=== PATIENT | female | born 1935 | race Caucasian/White ===

== ENCOUNTER 2020-05-03 08:01 | Emergency (ER) | payer OTHER ==
[2020-05-03 08:57] LABS: BILIRUBIN Negative (Negative); BLOOD Negative (Negative); CLARITY Clear (Clear); COLOR Yellow (Yellow); GLUCOSE Negative (Negative); KETONE Negative (Negative); LEUKO ESTERASE Trace (Negative); NITRITE Negative (Negative); UROBILINOGEN 0.2 E.U./dl (0.0-1.0)
[2020-05-03 09:08] LABS: BACTERIA 2+
[2020-05-03 09:15] LABS: CREATININE 1.14 mg/dL (0.55-1.02); POTASSIUM 4.9 mmol/L (3.5-5.1)
[2020-05-03 09:24] LABS: BASO % 0.2 % (0.0-1.0); EOS # 0.1 10*3/uL (0.0-0.4); EOS % 2.5 % (1.0-4.0); HEMATOCRIT 31.3 % (37.0-47.0); LYMPH # 0.7 10*3/uL (1.3-4.4); LYMPH % 13.4 % (27.0-41.0); MEAN CELL VOLUME 88.9 fl (81.0-99.0); MEAN CORPUSCULAR HGB 26.4 pg (27.0-31.0); MEAN CORPUSCULAR HGB CONC 29.7 g/dl (33.0-37.0); MEAN PLATELET VOLUME 9.2 fl (9.6-12.3); MONO # 0.5 10*3/uL (0.1-1.0); NEUT # 3.9 10*3/uL (2.3-7.9); NEUT % 73.7 % (47.0-73.0); PLATELET COUNT AUTOMATED 184 10*3/uL (130-400); RED BLOOD COUNT 3.52 10*6/uL (4.10-5.10); RED CELL DISTRI WIDTH 14.3 % (0-14.5); WHITE BLOOD COUNT 5.3 10*3/uL (4.8-10.8)
== END 2020-05-03 10:10 | disposition home or self-care (01) ==
LOC: ED 08:01
PROVIDERS: Internal Medicine
DX: Z00.01 Encounter for general adult medical examination with abnormal findings (principal); E03.9 Hypothyroidism, unspecified; I10 Essential (primary) hypertension; I48.91 Unspecified atrial fibrillation

== ENCOUNTER 2020-07-25 23:32 | Emergency (ER) | payer OTHER | END 2020-07-26 01:45 | LOC: ED 23:32 | DX: S00.93XA Contusion of unspecified part of head, initial encounter (principal); E03.9 Hypothyroidism, unspecified; I10 Essential (primary) hypertension; I48.91 Unspecified atrial fibrillation; W01.0XXA Fall on same level from slipping, tripping and stumbling without subsequent striking against object, initial encounter; Y93.89 Activity, other specified; Y92.89 Other specified places as the place of occurrence of the external cause; Y99.8 Other external cause status ==

== ENCOUNTER 2020-07-30 21:07 | Observation (INO) | payer OTHER ==
[~2020-07-30] VITALS: Ht 152.4 cm; Wt 69.0 kg
[2020-07-30 21:15] VITALS: BP 127/66
[2020-07-30 22:06] LABS: BASO % 0.4 % (0.0-1.0); EOS # 0.1 10*3/uL (0.0-0.4); EOS % 1.8 % (1.0-4.0); HEMATOCRIT 33.6 % (37.0-47.0); LYMPH # 0.9 10*3/uL (1.3-4.4); LYMPH % 15.2 % (27.0-41.0); MEAN CELL VOLUME 88.9 fl (81.0-99.0); MEAN CORPUSCULAR HGB 26.7 pg (27.0-31.0); MEAN CORPUSCULAR HGB CONC 30.1 g/dl (33.0-37.0); MEAN PLATELET VOLUME 9.6 fl (9.6-12.3); MONO # 0.5 10*3/uL (0.1-1.0); MONO % 8.4 % (3.0-9.0); NEUT # 4.1 10*3/uL (2.3-7.9); NEUT % 73.5 % (47.0-73.0); PLATELET COUNT AUTOMATED 246 10*3/uL (130-400); RED BLOOD COUNT 3.78 10*6/uL (4.10-5.10); RED CELL DISTRI WIDTH 15.5 % (0-14.5); WHITE BLOOD COUNT 5.6 10*3/uL (4.8-10.8)
[2020-07-30 22:20] LABS: CREATININE 1.7 mg/dL (0.55-1.02); POTASSIUM 5.9 mmol/L (3.5-5.1); TOTAL PROTEIN 7.4 gm/dL (6.4-8.2)
[2020-07-30 22:34] VITALS: BP 133/58
[2020-07-30 22:51] LABS: INTERNATIONAL NORM RATIO > 9.3 (2.0-3.5)
[2020-07-31 00:13] LABS: INTERNATIONAL NORM RATIO > 9.3 (2.0-3.5)
[2020-07-31] MEDS ORDERED: LEVOTHYROXINE75 MCG PO (00:16)
[2020-07-31] MEDS ORDERED: Imdur SA60 MG PO (00:17)
[2020-07-31] MEDS ORDERED: ATENOLOL25 MG PO (00:18)
[2020-07-31] MEDS ORDERED: ZESTORETIC 20-1 EACH PO (00:18)
[2020-07-31] MEDS ORDERED: MECLIZINE HYD12.5 MG PO (00:19)
[2020-07-31] MEDS ORDERED: WARFARIN SODIUM4 MG PO (00:20)
[2020-07-31] MEDS ORDERED: VITAMIN D250 MCG PO (00:21)
[2020-07-31] MEDS ORDERED: VITAMIN B-625 M1 PO (00:21)
[2020-07-31] MEDS ORDERED: SOOTHE XP EYE D15 ML OPH (00:22)
[2020-07-31] MEDS ORDERED: LATANOPROST2.5 ML OP (00:23)
[2020-07-31] MEDS ORDERED: SERTRALINE HYDR50 MG PO (00:23)
[2020-07-31] MEDS ORDERED: PRESERVISION A1 EAC2 PO (00:23)
[2020-07-31] MEDS ORDERED: IRON325 M1 PO (00:24)
[2020-07-31] MEDS ORDERED: QUETIAPINE FUMA50 M1 PO (00:25)
[2020-07-31 01:04] VITALS: BP 116/72
[2020-07-31 05:07] LABS: BASO % 0.2 % (0.0-1.0); EOS # 0.1 10*3/uL (0.0-0.4); EOS % 2.3 % (1.0-4.0); LYMPH # 0.7 10*3/uL (1.3-4.4); LYMPH % 13.8 % (27.0-41.0); MEAN CELL VOLUME 88.2 fl (81.0-99.0); MEAN CORPUSCULAR HGB 26.7 pg (27.0-31.0); MEAN CORPUSCULAR HGB CONC 30.3 g/dl (33.0-37.0); MEAN PLATELET VOLUME 9.6 fl (9.6-12.3); MONO # 0.5 10*3/uL (0.1-1.0); MONO % 9.2 % (3.0-9.0); NEUT # 3.9 10*3/uL (2.3-7.9); NEUT % 73.7 % (47.0-73.0); PLATELET COUNT AUTOMATED 259 10*3/uL (130-400); RED BLOOD COUNT 3.74 10*6/uL (4.10-5.10); RED CELL DISTRI WIDTH 15.5 % (0-14.5); WHITE BLOOD COUNT 5.2 10*3/uL (4.8-10.8)
[2020-07-31 05:10] LABS: ALBUMIN 2.9 gm/dl (3.1-4.5); CREATININE 1.65 mg/dL (0.55-1.02); POTASSIUM 5.7 mmol/L (3.5-5.1)
[2020-07-31 05:18] LABS: FREE T4 0.85 ng/dl (0.76-1.46); THYROID STIM HORMONE (HS) 2.55 uIU/ml (0.358-4.75)
[2020-07-31 06:07] LABS: ACT PARTIAL THROMBO TIME 65.8 SECONDS (20.0-32.1); INTERNATIONAL NORM RATIO 9.1 (2.0-3.5)
[2020-07-31 08:00] VITALS: BP 126/64
[2020-07-31 11:02] LABS: CREATININE 1.58 mg/dL (0.55-1.02)
[2020-07-31] MEDS ORDERED: ARTIFICIAL TEAR1514 OP (11:35)
[2020-07-31] MEDS ORDERED: VITAMIN D350 MC2 PO (11:38)
[2020-07-31 12:00] VITALS: BP 118/69
[2020-07-31 16:00] VITALS: BP 134/86
[2020-07-31 20:00] VITALS: BP 125/62
[2020-08-01] VITALS: BP 126/46
[2020-08-01 06:22] LABS: BASO % 0.2 % (0.0-1.0); EOS # 0.1 10*3/uL (0.0-0.4); EOS % 1.7 % (1.0-4.0); LYMPH # 0.8 10*3/uL (1.3-4.4); LYMPH % 12.6 % (27.0-41.0); MEAN CELL VOLUME 89.7 fl (81.0-99.0); MEAN CORPUSCULAR HGB 26.9 pg (27.0-31.0); MEAN PLATELET VOLUME 9.5 fl (9.6-12.3); MONO # 0.5 10*3/uL (0.1-1.0); MONO % 8.7 % (3.0-9.0); NEUT # 4.6 10*3/uL (2.3-7.9); NEUT % 76.5 % (47.0-73.0); PLATELET COUNT AUTOMATED 253 10*3/uL (130-400); RED BLOOD COUNT 3.68 10*6/uL (4.10-5.10); RED CELL DISTRI WIDTH 15.4 % (0-14.5)
[2020-08-01 06:33] LABS: CREATININE 1.3 mg/dL (0.55-1.02); POTASSIUM 5.3 mmol/L (3.5-5.1)
[2020-08-01 06:59] LABS: INTERNATIONAL NORM RATIO 1.9 (2.0-3.5)
[2020-08-01 08:00] VITALS: BP 144/69
[2020-08-01 12:00] VITALS: BP 136/66
[2020-08-01 16:00] VITALS: BP 154/65
[2020-08-01 20:00] VITALS: BP 119/73
[2020-08-01 20:41] LABS: BILIRUBIN Negative (Negative); BLOOD Negative (Negative); CLARITY Clear (Clear); COLOR Yellow (Yellow); GLUCOSE Negative (Negative); KETONE Negative (Negative); LEUKO ESTERASE Negative (Negative); NITRITE Negative (Negative); PH 5.5 (4.5-8.0); SPECIFIC GRAVITY 1.015 (1.001-1.030)
[2020-08-01 20:53] LABS: BACTERIA 2+; RBC 0-2 rbc/hpf (0-2)
[2020-08-02] VITALS: BP 116/50
[2020-08-02 06:24] LABS: BASO % 0.2 % (0.0-1.0); EOS # 0.1 10*3/uL (0.0-0.4); EOS % 1.5 % (1.0-4.0); HEMATOCRIT 35.9 % (37.0-47.0); LYMPH # 0.9 10*3/uL (1.3-4.4); LYMPH % 15.2 % (27.0-41.0); MEAN CELL VOLUME 88.4 fl (81.0-99.0); MEAN CORPUSCULAR HGB 26.1 pg (27.0-31.0); MEAN CORPUSCULAR HGB CONC 29.5 g/dl (33.0-37.0); MEAN PLATELET VOLUME 9.3 fl (9.6-12.3); MONO # 0.6 10*3/uL (0.1-1.0); MONO % 9.4 % (3.0-9.0); NEUT # 4.4 10*3/uL (2.3-7.9); NEUT % 73.5 % (47.0-73.0); PLATELET COUNT AUTOMATED 265 10*3/uL (130-400); RED BLOOD COUNT 4.06 10*6/uL (4.10-5.10); RED CELL DISTRI WIDTH 15.2 % (0-14.5); WHITE BLOOD COUNT 5.9 10*3/uL (4.8-10.8)
[2020-08-02 06:32] LABS: INTERNATIONAL NORM RATIO 1.4 (2.0-3.5)
[2020-08-02 06:52] LABS: CREATININE 1.22 mg/dL (0.55-1.02); POTASSIUM 5.2 mmol/L (3.5-5.1)
[2020-08-02 08:00] VITALS: BP 118/70
[2020-08-02 09:02] VITALS: BP 128/66
[2020-08-02 12:00] VITALS: BP 123/77
[2020-08-02 16:00] VITALS: BP 126/54
[2020-08-02 20:00] VITALS: BP 142/58
[2020-08-03] VITALS: BP 115/45
[2020-08-03 06:31] LABS: CREATININE 1.18 mg/dL (0.55-1.02); POTASSIUM 4.9 mmol/L (3.5-5.1)
[2020-08-03 08:00] VITALS: BP 143/77
[2020-08-03 12:00] VITALS: BP 114/54
[2020-08-03] MEDS ORDERED: RIVASTIGMINE1 EACH T (13:48)
[2020-08-03] MEDS ORDERED: NAMENDA-5 PO (13:48)
== END 2020-08-03 16:04 | disposition home or self-care (01) ==
LOC: ED 21:07 → EDHOLD 23:56 → 4E 07-31 00:23 → 5E 08-01 21:27
PROVIDERS: Emergency Medicine; Hospitalist; Internal Medicine; Student in an Organized Health Care Education/Training Program; ADMIT Internal Medicine; ATTEND Internal Medicine
DX: T45.511A Poisoning by anticoagulants, accidental (unintentional), initial encounter (principal); S09.90XA Unspecified injury of head, initial encounter; Z20.822 Contact with and (suspected) exposure to COVID-19; F98.8 Other specified behavioral and emotional disorders with onset usually occurring in childhood and adolescence; R79.1 Abnormal coagulation profile; R00.1 Bradycardia, unspecified; E87.1 Hypo-osmolality and hyponatremia; D64.9 Anemia, unspecified; E87.5 Hyperkalemia; R44.8 Other symptoms and signs involving general sensations and perceptions; E44.1 Mild protein-calorie malnutrition; N17.9 Acute kidney failure, unspecified; F32.9 Major depressive disorder, single episode, unspecified; F03.90 Unspecified dementia, unspecified severity, without behavioral disturbance, psychotic disturbance, mood disturbance, and anxiety; E55.9 Vitamin D deficiency, unspecified; E03.9 Hypothyroidism, unspecified; D50.0 Iron deficiency anemia secondary to blood loss (chronic); I48.91 Unspecified atrial fibrillation; Z90.710 Acquired absence of both cervix and uterus; Z90.89 Acquired absence of other organs; W18.09XA Striking against other object with subsequent fall, initial encounter; Y93.89 Activity, other specified; Y92.89 Other specified places as the place of occurrence of the external cause; Y99.8 Other external cause status

== ENCOUNTER 2020-12-19 00:52 | Emergency (ER) | payer OTHER ==
[~2020-12-19 00:52] MED LIST: ARTIFICIAL TEAR1514 OP; ATENOLOL25 MG PO; IRON325 M1 PO; Imdur SA60 MG PO; LATANOPROST2.5 ML OP; LEVOTHYROXINE75 MCG PO; MECLIZINE HYD12.5 MG PO; NAMENDA-5 PO; PRESERVISION A1 EAC2 PO; QUETIAPINE FUMA50 M1 PO; RIVASTIGMINE1 EACH T; SERTRALINE HYDR50 MG PO; SOOTHE XP EYE D15 ML OPH; VITAMIN B-625 M1 PO; VITAMIN D250 MCG PO; VITAMIN D350 MC2 PO; WARFARIN SODIUM4 MG PO; ZESTORETIC 20-1 EACH PO
[2020-12-19 01:17] LABS: BILIRUBIN Negative (Negative); BLOOD 1+ (Negative); CLARITY Clear (Clear); COLOR Yellow (Yellow); GLUCOSE Negative (Negative); KETONE Negative (Negative); LEUKO ESTERASE Negative (Negative); NITRITE Negative (Negative); PH 6.5 (4.5-8.0); UROBILINOGEN 0.2 E.U./dl (0.0-1.0)
[2020-12-19 01:30] LABS: BASO % 0.2 % (0.0-1.0); EOS # 0.1 10*3/uL (0.0-0.4); EOS % 2.4 % (1.0-4.0); HEMATOCRIT 33.9 % (37.0-47.0); LYMPH # 0.8 10*3/uL (1.3-4.4); MEAN CELL VOLUME 89.7 fl (81.0-99.0); MEAN CORPUSCULAR HGB 27.2 pg (27.0-31.0); MEAN CORPUSCULAR HGB CONC 30.4 g/dl (33.0-37.0); MEAN PLATELET VOLUME 9.5 fl (9.6-12.3); MONO # 0.6 10*3/uL (0.1-1.0); MONO % 10.5 % (3.0-9.0); NEUT % 72.7 % (47.0-73.0); PLATELET COUNT AUTOMATED 183 10*3/uL (130-400); RED BLOOD COUNT 3.78 10*6/uL (4.10-5.10); RED CELL DISTRI WIDTH 14.5 % (0-14.5); WHITE BLOOD COUNT 5.4 10*3/uL (4.8-10.8)
[2020-12-19 01:30] LABS: RBC 21-30 rbc/hpf (0-2)
[2020-12-19 01:42] LABS: INTERNATIONAL NORM RATIO 2.5 (2.0-3.5)
[2020-12-19 01:44] LABS: CREATININE 1.74 mg/dL (0.55-1.02); POTASSIUM 5.6 mmol/L (3.5-5.1)
== END 2020-12-19 06:03 ==
LOC: ED 00:52
PROVIDERS: Internal Medicine
DX: N93.8 Other specified abnormal uterine and vaginal bleeding (principal); N17.9 Acute kidney failure, unspecified; N18.9 Chronic kidney disease, unspecified; E87.8 Other disorders of electrolyte and fluid balance, not elsewhere classified; D64.9 Anemia, unspecified; N28.89 Other specified disorders of kidney and ureter; Z79.899 Other long term (current) drug therapy; Z79.01 Long term (current) use of anticoagulants; Z90.711 Acquired absence of uterus with remaining cervical stump; Z96.659 Presence of unspecified artificial knee joint

== ENCOUNTER 2021-04-05 16:26 | Emergency (ER) | payer OTHER ==
[2021-04-05 17:24] LABS: BASO % 0.2 % (0.0-1.0); EOS # 0.1 10*3/uL (0.0-0.4); EOS % 1.2 % (1.0-4.0); LYMPH # 0.9 10*3/uL (1.3-4.4); LYMPH % 17.1 % (27.0-41.0); MEAN CELL VOLUME 88.2 fl (81.0-99.0); MEAN CORPUSCULAR HGB 27.5 pg (27.0-31.0); MEAN CORPUSCULAR HGB CONC 31.1 g/dl (33.0-37.0); MEAN PLATELET VOLUME 9.5 fl (9.6-12.3); MONO # 0.5 10*3/uL (0.1-1.0); MONO % 10.2 % (3.0-9.0); NEUT # 3.5 10*3/uL (2.3-7.9); NEUT % 71.1 % (47.0-73.0); PLATELET COUNT AUTOMATED 162 10*3/uL (130-400); RED BLOOD COUNT 4.08 10*6/uL (4.10-5.10); RED CELL DISTRI WIDTH 14.7 % (0-14.5)
[2021-04-05 17:41] LABS: ALBUMIN 2.9 gm/dl (3.1-4.5); ALKALINE PHOSPHATASE 128 U/L (45-117); BUN 27 mg/dl (7-24); CHLORIDE 108 mmol/L (98-107); CREATININE 1.17 mg/dL (0.55-1.02); POTASSIUM 4.7 mmol/L (3.5-5.1); SGOT/AST 25 IU/L (3-35); SGPT/ALT 22 U/L (12-78); SODIUM 140 mmol/L (136-145); TOTAL PROTEIN 7.4 gm/dL (6.4-8.2)
[2021-04-05 17:45] LABS: ETHYL ALCOHOL < 3.0 mg/dl (<3)
[2021-04-05 18:23] LABS: BILIRUBIN Negative (Negative); BLOOD Negative (Negative); CLARITY Cloudy (Clear); COLOR Yellow (Yellow); GLUCOSE Negative (Negative); KETONE Negative (Negative); LEUKO ESTERASE 2+ (Negative); NITRITE Positive (Negative); SPECIFIC GRAVITY 1.015 (1.001-1.030)
[2021-04-05 18:31] LABS: URINE AMPHETAMINES < 1000 (1000ng/ml); URINE BARBITURATES < 200 (200ng/ml); URINE BENZODIAZEPINES < 200 (200ng/ml); URINE CANNABINOIDS (THC) < 50 (50ng/ml); URINE COCAINE < 300 (300ng/ml); URINE METHADONE < 300 (300ng/ml); URINE OPIATES < 300 (300ng/ml)
[2021-04-05 18:39] LABS: URINE PHENCYCLIDINE < 25 (25ng/ml)
[2021-04-05 18:48] LABS: WBC 51-100 wbc/hpf (0-5)
[2021-04-05 18:49] LABS: BACTERIA 4+
== END 2021-04-05 23:31 ==
LOC: ED 16:26
PROVIDERS: Emergency Medicine
DX: R45.1 Restlessness and agitation (principal); Z79.899 Other long term (current) drug therapy

== ENCOUNTER 2021-04-15 15:02 | Inpatient (IN) | payer OTHER ==
[~2021-04-15] VITALS: Ht 152.4 cm; Wt 76.2 kg
[2021-04-15 15:55] VITALS: BP 167/67
[2021-04-15 16:56] LABS: BASO % 0.1 % (0.0-1.0); EOS # 0.1 10*3/uL (0.0-0.4); EOS % 1.4 % (1.0-4.0); HEMATOCRIT 39.1 % (37.0-47.0); LYMPH % 13.5 % (27.0-41.0); MEAN CELL VOLUME 89.5 fl (81.0-99.0); MEAN CORPUSCULAR HGB 27.2 pg (27.0-31.0); MEAN CORPUSCULAR HGB CONC 30.4 g/dl (33.0-37.0); MEAN PLATELET VOLUME 9.6 fl (9.6-12.3); MONO # 0.5 10*3/uL (0.1-1.0); MONO % 7.2 % (3.0-9.0); NEUT # 5.7 10*3/uL (2.3-7.9); NEUT % 77.4 % (47.0-73.0); PLATELET COUNT AUTOMATED 181 10*3/uL (130-400); RED BLOOD COUNT 4.37 10*6/uL (4.10-5.10); WHITE BLOOD COUNT 7.3 10*3/uL (4.8-10.8)
[2021-04-15 17:01] LABS: BILIRUBIN Negative (Negative); BLOOD Negative (Negative); CLARITY Cloudy (Clear); COLOR Yellow (Yellow); GLUCOSE Negative (Negative); KETONE Negative (Negative); LEUKO ESTERASE Negative (Negative); NITRITE Negative (Negative); PH 5.5 (4.5-8.0); SPECIFIC GRAVITY 1.025 (1.001-1.030); UROBILINOGEN 0.2 E.U./dl (0.0-1.0)
[2021-04-15 17:08] LABS: ALBUMIN 3.5 gm/dl (3.1-4.5); CREATININE 1.13 mg/dL (0.55-1.02); POTASSIUM 4.7 mmol/L (3.5-5.1); TOTAL PROTEIN 8.2 gm/dL (6.4-8.2)
[2021-04-15 17:12] LABS: ACT PARTIAL THROMBO TIME 27.8 SECONDS (20.0-32.1); INTERNATIONAL NORM RATIO 1.2 (2.0-3.5)
[2021-04-15 17:17] LABS: RBC 0-2 rbc/hpf (0-2)
[2021-04-15 17:18] LABS: EPITHELIAL CELLS 0-2
[2021-04-15 19:35] VITALS: BP 167/60
[2021-04-15 21:05] VITALS: BP 144/55; BP 167/60
[2021-04-16 02:55] VITALS: BP 128/76
[2021-04-16 05:57] LABS: BASO % 0.3 % (0.0-1.0); EOS % 0.4 % (1.0-4.0); HEMATOCRIT 35.6 % (37.0-47.0); LYMPH # 0.9 10*3/uL (1.3-4.4); LYMPH % 11.6 % (27.0-41.0); MEAN CELL VOLUME 89.9 fl (81.0-99.0); MEAN CORPUSCULAR HGB 27.3 pg (27.0-31.0); MEAN CORPUSCULAR HGB CONC 30.3 g/dl (33.0-37.0); MEAN PLATELET VOLUME 10.5 fl (9.6-12.3); MONO # 0.5 10*3/uL (0.1-1.0); MONO % 7.4 % (3.0-9.0); NEUT # 5.9 10*3/uL (2.3-7.9); NEUT % 80.2 % (47.0-73.0); PLATELET COUNT AUTOMATED 175 10*3/uL (130-400); RED BLOOD COUNT 3.96 10*6/uL (4.10-5.10); WHITE BLOOD COUNT 7.3 10*3/uL (4.8-10.8)
[2021-04-16 06:23] VITALS: BP 116/64
[2021-04-16 06:27] LABS: CREATININE 1.12 mg/dL (0.55-1.02)
[2021-04-16 06:36] LABS: FREE T4 0.95 ng/dl (0.76-1.46); THYROID STIM HORMONE (HS) 0.988 uIU/ml (0.358-4.75)
[2021-04-16 06:46] LABS: INTERNATIONAL NORM RATIO 1.3 (2.0-3.5)
[2021-04-16 18:29] VITALS: BP 151/77
[2021-04-17] VITALS: BP 148/75
[2021-04-17 06:26] LABS: BASO % 0.3 % (0.0-1.0); EOS # 0.1 10*3/uL (0.0-0.4); EOS % 0.9 % (1.0-4.0); HEMATOCRIT 34.8 % (37.0-47.0); LYMPH # 0.8 10*3/uL (1.3-4.4); LYMPH % 9.6 % (27.0-41.0); MEAN CELL VOLUME 88.1 fl (81.0-99.0); MEAN CORPUSCULAR HGB 27.1 pg (27.0-31.0); MEAN CORPUSCULAR HGB CONC 30.7 g/dl (33.0-37.0); MEAN PLATELET VOLUME 9.6 fl (9.6-12.3); MONO # 0.7 10*3/uL (0.1-1.0); MONO % 8.4 % (3.0-9.0); NEUT # 6.4 10*3/uL (2.3-7.9); NEUT % 80.4 % (47.0-73.0); PLATELET COUNT AUTOMATED 144 10*3/uL (130-400); RED BLOOD COUNT 3.95 10*6/uL (4.10-5.10); WHITE BLOOD COUNT 7.9 10*3/uL (4.8-10.8)
[2021-04-17 06:32] LABS: CREATININE 1.13 mg/dL (0.55-1.02); POTASSIUM 4.3 mmol/L (3.5-5.1)
[2021-04-17 08:03] VITALS: BP 142/72
[2021-04-17 12:00] VITALS: BP 146/72
[2021-04-17 16:00] VITALS: BP 147/69
[2021-04-17 20:00] VITALS: BP 122/55
[2021-04-18] VITALS: BP 142/87
[2021-04-18 06:28] LABS: BASO % 0.2 % (0.0-1.0); EOS # 0.2 10*3/uL (0.0-0.4); EOS % 2.4 % (1.0-4.0); HEMATOCRIT 35.3 % (37.0-47.0); LYMPH # 0.7 10*3/uL (1.3-4.4); LYMPH % 10.8 % (27.0-41.0); MEAN CELL VOLUME 88.3 fl (81.0-99.0); MEAN CORPUSCULAR HGB 27.5 pg (27.0-31.0); MEAN CORPUSCULAR HGB CONC 31.2 g/dl (33.0-37.0); MEAN PLATELET VOLUME 9.8 fl (9.6-12.3); MONO # 0.5 10*3/uL (0.1-1.0); MONO % 7.9 % (3.0-9.0); NEUT # 4.9 10*3/uL (2.3-7.9); NEUT % 78.4 % (47.0-73.0); PLATELET COUNT AUTOMATED 136 10*3/uL (130-400); RED CELL DISTRI WIDTH 14.8 % (0-14.5); WHITE BLOOD COUNT 6.2 10*3/uL (4.8-10.8)
[2021-04-18 06:46] LABS: BUN 31 mg/dl (7-24); CHLORIDE 109 mmol/L (98-107); CREATININE 0.91 mg/dL (0.55-1.02); POTASSIUM 3.8 mmol/L (3.5-5.1); SODIUM 138 mmol/L (136-145)
[2021-04-18 08:00] VITALS: BP 132/78
[2021-04-18 12:15] VITALS: BP 136/76
[2021-04-18 16:00] VITALS: BP 156/78
[2021-04-18 20:00] VITALS: BP 135/68
[2021-04-19] VITALS: BP 126/65
[2021-04-19 06:33] LABS: BASO % 0.2 % (0.0-1.0); EOS # 0.1 10*3/uL (0.0-0.4); EOS % 1.7 % (1.0-4.0); HEMATOCRIT 35.9 % (37.0-47.0); LYMPH # 0.5 10*3/uL (1.3-4.4); LYMPH % 8.1 % (27.0-41.0); MEAN CELL VOLUME 88.6 fl (81.0-99.0); MEAN CORPUSCULAR HGB 27.4 pg (27.0-31.0); MEAN CORPUSCULAR HGB CONC 30.9 g/dl (33.0-37.0); MEAN PLATELET VOLUME 9.8 fl (9.6-12.3); MONO # 0.5 10*3/uL (0.1-1.0); MONO % 7.2 % (3.0-9.0); NEUT # 5.3 10*3/uL (2.3-7.9); NEUT % 82.5 % (47.0-73.0); PLATELET COUNT AUTOMATED 165 10*3/uL (130-400); RED BLOOD COUNT 4.05 10*6/uL (4.10-5.10); RED CELL DISTRI WIDTH 14.4 % (0-14.5); WHITE BLOOD COUNT 6.4 10*3/uL (4.8-10.8)
[2021-04-19 06:39] LABS: INTERNATIONAL NORM RATIO 1.3 (2.0-3.5)
[2021-04-19 06:52] LABS: BUN 25 mg/dl (7-24); CHLORIDE 109 mmol/L (98-107); POTASSIUM 3.7 mmol/L (3.5-5.1); SODIUM 136 mmol/L (136-145)
[2021-04-19 06:54] LABS: CREATININE 0.91 mg/dL (0.55-1.02)
[2021-04-19 08:00] VITALS: BP 177/58
[2021-04-19 12:00] VITALS: BP 150/75
[2021-04-19 16:00] VITALS: BP 153/74
[2021-04-19 20:00] VITALS: BP 146/78
[2021-04-20] VITALS: BP 151/72
[2021-04-20 06:56] LABS: INTERNATIONAL NORM RATIO 1.4 (2.0-3.5)
[2021-04-20 07:03] LABS: BUN 20 mg/dl (7-24); CHLORIDE 107 mmol/L (98-107); CREATININE 0.89 mg/dL (0.55-1.02); POTASSIUM 3.4 mmol/L (3.5-5.1); SODIUM 139 mmol/L (136-145)
[2021-04-20 07:27] LABS: BASO % 0.2 % (0.0-1.0); EOS # 0.1 10*3/uL (0.0-0.4); EOS % 1.6 % (1.0-4.0); HEMATOCRIT 35.3 % (37.0-47.0); LYMPH # 0.5 10*3/uL (1.3-4.4); LYMPH % 9.4 % (27.0-41.0); MEAN CELL VOLUME 87.2 fl (81.0-99.0); MEAN CORPUSCULAR HGB 27.2 pg (27.0-31.0); MEAN CORPUSCULAR HGB CONC 31.2 g/dl (33.0-37.0); MEAN PLATELET VOLUME 10.1 fl (9.6-12.3); MONO # 0.5 10*3/uL (0.1-1.0); NEUT # 4.5 10*3/uL (2.3-7.9); NEUT % 79.4 % (47.0-73.0); PLATELET COUNT AUTOMATED 175 10*3/uL (130-400); RED BLOOD COUNT 4.05 10*6/uL (4.10-5.10); RED CELL DISTRI WIDTH 14.5 % (0-14.5); WHITE BLOOD COUNT 5.7 10*3/uL (4.8-10.8)
[2021-04-20 08:00] VITALS: BP 142/88
[2021-04-20 12:00] VITALS: BP 146/77
[2021-04-20] MEDS ORDERED: WARFARIN SOD5 MG PO (14:44)
[2021-04-20] MEDS ORDERED: DOXYCYCLINE HY100 M3 PO (14:44)
[2021-04-20] MEDS ORDERED: K-TAB20 MEQ PO (14:45)
[2021-04-20 16:00] VITALS: BP 148/65
== END 2021-04-20 19:32 | DRG 871 ==
LOC: ED 15:02 → EDHOLD 17:39 → 5E 17:39 → EDHOLD 18:11 → 5E 04-16 17:46
PROVIDERS: Emergency Medicine; Internal Medicine; Student in an Organized Health Care Education/Training Program; ADMIT Student in an Organized Health Care Education/Training Program; ATTEND Student in an Organized Health Care Education/Training Program
DX: A41.9 Sepsis, unspecified organism (principal); N17.0 Acute kidney failure with tubular necrosis; G93.41 Metabolic encephalopathy; J18.9 Pneumonia, unspecified organism; E86.0 Dehydration; D64.9 Anemia, unspecified; F43.23 Adjustment disorder with mixed anxiety and depressed mood; Z20.822 Contact with and (suspected) exposure to COVID-19; R26.2 Difficulty in walking, not elsewhere classified; F03.90 Unspecified dementia, unspecified severity, without behavioral disturbance, psychotic disturbance, mood disturbance, and anxiety; R73.9 Hyperglycemia, unspecified; I48.91 Unspecified atrial fibrillation; F41.9 Anxiety disorder, unspecified; I10 Essential (primary) hypertension; Z79.01 Long term (current) use of anticoagulants; Z90.710 Acquired absence of both cervix and uterus; Z79.899 Other long term (current) drug therapy